=== PATIENT | female | born 1985 | race Caucasian/White ===

== ENCOUNTER 2017-02-28 03:00 | Emergency (ER) | payer MEDICAID ==
[2017-02-28] MEDS ORDERED: NS 0.9% 1000 ML* 1,000 ML IV ONE ×2 (03:23→05:01)
[2017-02-28] MEDS ORDERED: Ketorolac INJ* 30 MG/ML 1 ML VIAL IV ONE (03:23)
[2017-02-28] MEDS ORDERED: Morphine INJ* 4 MG/ML 1 ML SYRINGE IV ONE (03:23)
[2017-02-28] MEDS ORDERED: Ondansetron INJ* 2 MG/ML VIAL IV ONE (03:23)
[2017-02-28 04:07] LABS: Hematocrit 39 % (35-47); Mean Corpuscular HGB Conc 33 g/dl (31-36); Mean Corpuscular Hemoglobin 28 pg (27-31); Mean Corpuscular Volume 85 fL (80-97); Mean Platelet Volume 8 um3 (7.4-10.4); Red Blood Count 4.65 10^6/ul (4.0-5.4); Red Cell Distribution Width 15 % (10.5-15); White Blood Count 6.9 10^3/ul (3.5-10.8)
[2017-02-28 04:11] LABS: ALT 13 U/L (7-52); AST 15 U/L (13-39); Albumin 4.1 g/dL (3.2-5.2); Alkaline Phosphatase 44 U/L (34-104); Anion Gap 6 mmol/L (2-11); BUN/Creatinine Ratio 18.8 (8-20); Blood Urea Nitrogen 16 mg/dL (6-24); C Reactive Protein 4.43 mg/L (< 5.00); CO2 Carbon Dioxide 24 mmol/L (22-32); Calcium 8.8 mg/dL (8.6-10.3); Chloride 106 mmol/L (101-111); EGFR Non-African American 78.5 (>60); Globulin 2.7 g/dL (2-4); Glucose 119 mg/dL (70-100); Lipase 18 U/L (11.0-82.0); Potassium 3.4 mmol/L (3.5-5.0); Sodium 136 mmol/L (133-145); Total Protein 6.8 g/dL (6.4-8.9)
[2017-02-28 06:43] VITALS: BP 113/71
[2017-02-28] MEDS ORDERED: HYDROcodone/ACETAMIN 5-325 MG* 1 TAB PO ONE (06:53)
[2017-02-28 06:56] LABS: Urine Bacteria Absent (Absent); Urine Bilirubin Negative (Negative); Urine Glucose Negative (Negative); Urine Nitrite Negative (Negative)
--- NOTE | 2017-02-28 06:58 | ED ---
Kevin Kerr Alok, scribed for Kindra Roy MD on 02/28/17 at 0323 . Abdominal Pain/Female - HPI Summary HPI Summary: 31F presents to the ED with flank pain bilaterally on and off for the past few weeks. Pt states that her flank pain worsened this evening at 1800 and has been relatively constant since as well as slightly worse on the left side. The last thing the pt ate before her abd pain this evening was ice cream. Pt was seen at [facility] and had US done 5 days ago. Pt states her flank pain worsens with bending. 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 Pt also notes nausea. Pt denies dysuria or fever. Pt denies h/o pregnancies. PMHx includes thyroid disease for which she takes levothyroxine. Pt is currently on her menstrual period. - History of Current Complaint Chief Complaint: EDAbdPain Stated Complaint: ABD/SIDE PAIN Time Seen by Provider: 02/28/17 03:09 Hx Obtained From: Patient Onset/Duration: Lasting Weeks, Still Present Timing: Constant - Since 1800 this evening Severity Initially: Moderate Severity Currently: Moderate Location: Flank Aggravating Factor(s): Other: - bending Alleviating Factor(s): Nothing Associated Signs and Symptoms: Positive: Nausea. Negative: Fever, Urinary Symptoms Allergies/Adverse Reactions: Allergies Allergy/AdvReac Type Severity Reaction Status Date / Time No Known Allergies Allergy Verified 11/04/15 07:26 PMH/Surg Hx/FS Hx/Imm Hx Endocrine/Hematology History: Reports: Hx Thyroid Disease - hypothyroidism Denies: Hx Diabetes Cardiovascular History: Denies: Hx Aneurysm, Hx Angina, Hx Angioplasty, Hx Atrial Fibrillation, Hx Auto Implanted Cardiovert Defib, Hx Cardiac Arrest, Hx Cardiomegaly, Hx Congenital Heart Disease, Hx Congestive Heart Failure, Hx Coronary Artery Disease, Hx Deep Vein Thrombosis, Hx Embolism, Hx Hypercholesterolemia, Hx Hypotension, Hx Hypertension, Hx Myocardial Infarction, Hx Pacemaker/ICD, Hx Peripheral Vascular Disease, Hx Rheumatic Fever, Hx Syncope, Hx Valvular Heart Disease, Other Cardiovascular Problems/Disorders Respiratory History: Denies: Hx Asthma, Hx Bronchopulmonary Dysplasia, Hx Chronic Bronchitis, Hx Chronic Obstructive Pulmonary Disease (COPD), Hx Cystic Fibrosis, Hx Lung Cancer , Hx Pleural Effusion, Hx Pneumonia, Hx Pulmonary Edema, Hx Pulmonary Embolism, Hx Seasonal Allergies, Hx Sleep Apnea, Other Respiratory Problems/Disorders GI History: Denies: Hx Cirrhosis, Hx Crohn's Disease, Hx Diverticulosis, Hx Gall Bladder Disease, Hx Gastroesophageal Reflux Disease, Hx Gastrointestinal Bleed, Hx Hiatal Hernia, Hx Irritable Bowel, Hx Jaundice, Hx Obstructive Bowel, Hx Ileostomy, Hx Pyloric Stenosis, Hx Ulcer, Hx Urosepsis, Other GI Disorders History: Denies: Hx Acute Renal Failure, Hx Benign Prostatic Hyperplasia, Hx Chronic Renal Failure, Hx Dialysis, Hx Kidney Infection, Hx Kidney Stones, Hx Renal Disease, Other Problems/Disorders Musculoskeletal History: Denies: Hx Arthritis, Hx Rheumatoid Arthritis, Hx Back Problems, Hx Bursitis , Hx Congenital Bone Abnormalities, Hx Fibromyalgia, Hx Gout, Hx Orthopedic Injury, Hx Osteoporosis, Hx Scoliosis, Hx Tendonitis, Other Musculoskeletal History Sensory History: Reports: Hx Contacts or Glasses - GLASSES Denies: Hx Cataracts, Hx Eye Injury, Hx Eye Prosthesis, Hx Glaucoma, Hx Legally Blind, Hx Macular Degeneration, Hx Vision Problem, Hx Deafness, Hx Hearing Aid, Hx Hearing Problem, Other Sensory Impairments Opthamlomology History: Reports: Hx Contacts or Glasses - GLASSES Denies: Hx Cataracts, Hx Eye Injury, Hx Eye Prosthesis, Hx Glaucoma, Hx Legally Blind, Hx Macular Degeneration, Hx Vision Problem, Other Sensory Impairments Neurological History: Denies: Hx CVA, Hx Dementia, Hx Developmental Delay, Hx Headaches, Hx Migraine, Hx Nerve Disease, Hx Peripheral Neuropathy, Hx Seizures, Hx Spinal Cord Injury, Hx Transient Ischemic Attacks (TIA), Other Neuro Impairments/ Disorders Psychiatric History: Reports: Hx Anxiety - MINOR, Hx Attention Deficit Hyperactivity Disorder Denies: Hx Depression - Surgical History Surgery Procedure, Year, and Place: 2006 WISDOM TEETH EXTRACTION, TYE. BILATERAL SURGERY FOR INGROWN TOENAILS, TYE Hx Anesthesia Reactions: No Infectious Disease History: Denies: Traveled Outside the [place] in Last 30 Days - Family History Known Family History: Positive: Other - Yes - cholecystectomy (dad) Negative: Diabetes - Social History Occupation: Employed Full-time Lives: With Family Alcohol Use: None Hx Substance Use: No Substance Use Type: Reports: None Hx Tobacco Use: No Smoking Status (MU): Never Smoked Tobacco Review of Systems Negative: Fever Positive: Abdominal Pain, Nausea Negative: dysuria All Other Systems Reviewed And Are Negative: Yes Physical Exam Triage Information Reviewed: Yes Vital Signs On Initial Exam: Initial Vital Signs Temp 98 F 02/28/17 03:19 Pulse 78 02/28/17 03:19 Resp 22 02/28/17 03:19 BP 111/67 02/28/17 03:19 Pulse Ox 95 02/28/17 03:19 Vital Signs Reviewed: Yes Appearance: Positive: Well-Appearing, No Pain Distress Skin: Positive: Warm, Skin Color Reflects Adequate Perfusion, Dry Eyes: Positive: EOMI, NEAL ENT: Positive: Pharynx normal, TMs normal Neck: Positive: Supple, Nontender Respiratory/Lung Sounds: Positive: Clear to Auscultation, Breath Sounds Present. Negative: Rales, Rhonchi, Wheezes Cardiovascular: Positive: RRR, Other - no gallop. Negative: Murmur, Rub Abdomen Description: Positive: Soft, Other: - no rebound. Bilateral side muscular pain.. Negative: Distended, Guarding Bowel Sounds: Positive: Present Musculoskeletal: Positive: Other - Bilateral side muscular pain.. Negative: Edema Left, Edema Right Neurological: Positive: Sensory/Motor Intact, Alert, Oriented to Person Place, Time, CN Intact II-III Psychiatric: Positive: Affect/Mood Appropriate Diagnostics - Vital Signs Vital Signs Temp Pulse Resp BP Pulse Ox 02/28/17 06:00 77 113/71 97 02/28/17 05:08 70 97 02/28/17 04:30 120/87 02/28/17 04:03 71 99 02/28/17 04:02 113/78 02/28/17 03:39 16 02/28/17 03:19 98 F 78 22 111/67 95 - Laboratory Lab Results: Lab Results 02/28/17 02/28/17 Range/Units 03:44 03:44 WBC 6.9 (3.5-10.8) 10^3/ul RBC 4.65 (4.0-5.4) 10^6/ul Hgb 13.0 (12.0-16.0) g/dl Hct 39 (35-47) % MCV 85 (80-97) fL MCH 28 (27-31) pg MCHC 33 (31-36) g/dl RDW 15 (10.5-15) % Plt Count 207 (150-450) 10^3/ul MPV 8 (7.4-10.4) um3 Neut % (Auto) 62.8 (38-83) % Lymph % (Auto) 29.1 (25-47) % [place] % (Auto) 6.0 (1-9) % Eos % (Auto) 1.4 (0-6) % Baso % (Auto) 0.7 (0-2) % Absolute Neuts (auto) 4.3 (1.5-7.7) 10^3/ul Absolute Lymphs (auto) 2.0 (1.0-4.8) 10^3/ul Absolute Monos (auto) 0.4 (0-0.8) 10^3/ul Absolute Eos (auto) 0.1 (0-0.6) 10^3/ul Absolute Basos (auto) 0 (0-0.2) 10^3/ul Absolute Nucleated RBC 0 10^3/ul Nucleated RBC % 0.1 Sodium 136 (133-145) mmol/L Potassium 3.4 L (3.5-5.0) mmol/L Chloride 106 (101-111) mmol/L Carbon Dioxide 24 (22-32) mmol/L Anion Gap 6 (2-11) mmol/L BUN 16 (6-24) mg/dL Creatinine 0.85 (0.51-0.95) mg/dL Est GFR ( Amer) 101.0 (>60) Est GFR (Non-Af Amer) 78.5 (>60) BUN/Creatinine Ratio 18.8 (8-20) Glucose 119 H (70-100) mg/dL Calcium 8.8 (8.6-10.3) mg/dL Total Bilirubin 0.40 (0.2-1.0) mg/dL AST 15 (13-39) U/L ALT 13 (7-52) U/L Alkaline Phosphatase 44 (34-104) U/L C-Reactive Protein 4.43 (< 5.00) mg/L Total Protein 6.8 (6.4-8.9) g/dL Albumin 4.1 (3.2-5.2) g/dL Globulin 2.7 (2-4) g/dL Albumin/Globulin Ratio 1.5 (1-3) Lipase 18 (11.0-82.0) U/L Beta HCG, Quant < 0.60 mIU/mL Result Diagrams: 02/28/17 03:44 02/28/17 03:44 Lab Statement: Any lab studies that have been ordered have been reviewed, and results considered in the medical decision making process. Abdominal Pain Fem Course/Dx - Course Course Of Treatment: 31 yo female with b/l flank pain she is actually tender to palpation over her abdominal muscles laterally when she moves only. Her exam is otherwise normal, once her urine is back and is negative she will be discharged home - Diagnoses Provider Diagnoses: Flank pain Discharge - Discharge Plan Condition: Stable Disposition: HOME The documentation as recorded by the Kevin motley Alok accurately reflects the service I personally performed and the decisions made by me, Kindra Roy MD.
--- NOTE | 2017-02-28 08:24 | RAD ---
CLINICAL HISTORY: Bilateral flank pain and hematuria COMPARISON: None TECHNIQUE: Noncontrast CT examination of the abdomen and pelvis from the lung bases through the initial tuberosities. FINDINGS: VISUALIZED LUNG BASES: The visualized lung bases are grossly clear. There is no pleural effusion. ABDOMEN AND PELVIS: Evaluation of the solid organs and vasculature is limited without intravenous contrast. The liver, spleen, pancreas and adrenal glands are grossly normal in appearance. The gallbladder is normal. There are no renal calculi in either kidney and no signs of hydroureteronephrosis bilaterally. It becomes very difficult to track the distal ureter due to proximity to other soft tissues. In the left hemipelvis (image 134) there is a round 3 mm density that has a morphologic appearance more consistent with a phlebolith. Similarly, there is a smaller and similar shaped structure in the right hemipelvis (image 135). Urinary bladder measures 10.6 x 9.6 x 8.7 cm yielding an approximate volume of 717 mL. The small and large bowel are not distended. The partially gas-filled appendix is identified in the right lower quadrant (axial image 111 and coronal image 40). The gas and stool-filled colon does not exhibit any acute abnormalities. There is no gross retroperitoneal or mesenteric lymphadenopathy. The pelvic viscera is normal in appearance. The abdominal aorta and iliac arteries are normal in course and diameter. There are no sinister bone lesions. IMPRESSION: There are no renal calculi or definite signs of hydroureter nephrosis bilaterally. In the bilateral pelvis there are round hyperattenuating foci measuring 2 and 3 mm in diameter that have a morphologic appearance more consistent with a phleboliths than urinary calculi.
[2017-02-28] MEDS ORDERED: Potassium Chlor TAB* 20 MEQ TAB.ER PO ONE (08:29)
--- NOTE | 2017-02-28 11:58 | ED ---
Fermín Kerr Thomas, scribed for Mike Cheng MD on 02/28/17 at 0826 . Progress - Progress Note Progress Note: Sign out from Dr. Roy to Dr. Cheng 08:00 02/28 pending labs/UA. Pt is a 31 y/o female presenting to the ED c/o abd pain. Yesterday evening the pt angel from bed to urinate and experienced nausea and worsening of abd pain, prompting an ED visit. Sx are relieived when the pt lies supine on the bed, but the pt notes "maybe the morphine is working". Prior to her worsening of Sx last night, the Sx were alleviated with advil. Sx are aggravated when the pt moves. Three days ago the pt had an abd US that found renal calculi on the left side. VITAL SIGNS: Reviewed. GENERAL: Patient is a well-developed and nourished female who is lying comfortable in the stretcher. Patient is not in any acute respiratory distress. HEAD AND FACE: Normocephalic and atraumatic. EYES: PERRLA, EOMI x 2, No injected conjunctiva. EARS: Hearing grossly intact. Ear canals and tympanic membranes are WNL. MOUTH: Oropharynx within normal limits. NECK: Supple, trachea is midline, no adenopathy, no JVD. CHEST: Symmetric, no tenderness at palpation LUNGS: Clear to auscultation bilaterally. No wheezing or crackles. CVS: RRR, S1 and S2 present, no murmurs or gallops appreciated. ABDOMEN: Soft, non-tender. No signs of distention. Positive bowel sounds. No rebound no guarding, and no masses palpated. No abdominal bruit or pulsations. EXTREMITIES: FROM in all major joints, no edema, no cyanosis or clubbing. NEURO: Alert and oriented x 3. No acute neurological deficits. Speech is normal. SKIN: Dry and warm Course/Dx - Course Course Of Treatment: Patient was signed out by Dr. Roy to awaiting results of CT Abd/Pel. The patient came in with bilateral flank pain. UA showed 3+ blood , therefore Dr. Roy ordered a CT Abd/Pel to rule out kidney stones. The CT found there are no renal calculi or definite signs of hydroureter nephrosis bilaterally. In the bilateral pelvis there are round hyperattenuating foci measuring 2 and 3 mm in diameter that have a morphologic appearance more consistent with a phleboliths than urinary calculi. Because there were no kidney stones and the patient is feeling better, the patient was discharged to follow up with PCP. The patient was instructed if there is any fever, chills, nausea, vomiting, or any other pain, she should return to the ED for further workup. The patient was hemodynamically stable and alert and oriented x3. I discussed all the findings and test results with the patient. Patient was instructed to return to the emergency room immediately if any of the symptoms return or worsens. They were explained the possibility of an early abdominal pathology which was not detected at this time despite the physical exam and testing. They understand and agree. Abdominal exam before discharge: Soft, NT. No signs of distention. BS present. No rebound no guarding, and no masses palpated. Patient is alert and oriented and hemodynamically stable. Patient is to follow up with primary care physician in the next 2 to 3 days. Patient agree and understands. - Diagnoses Provider Diagnoses: Flank pain, Back pain The documentation as recorded by the Fermín motley Thomas accurately reflects the service I personally performed and the decisions made by me, Mike Cheng MD.
== END 2017-02-28 08:40 | disposition home or self-care (01) ==
LOC: ED 03:00
DX: R10.84 Generalized abdominal pain (principal); M54.9 Dorsalgia, unspecified; R11.0 Nausea
CPT/HCPCS: 36415; 74176; 80053; 81003; 81015; 83690; 84702; 85025; 86140; 87086; 99282; A9270-GY; J1885; J2270; J2405

== ENCOUNTER 2023-09-23 19:11 | Inpatient (IN) ==
[2023-09-23 21:07] LABS: Hematocrit 36.3 % (35-45); Hemoglobin 12.7 g/dL (11.5-14.3); Mean Corpuscular Hemoglobin 32.4 pg (27-33); Mean Corpuscular Hgb Conc 34.9 g/dL (31-36); Mean Platelet Volume 8.9 fL (7.5-11.2); Platelet Count 148 10^3/uL (150-450); Red Cell Distribution Width 13.6 % (12-17); White Blood Count 6.9 10^3/uL (3.8-11.8)
[2023-09-23] MEDS ORDERED: Buffered Lidocaine 1% SYRIN 1 ml INTRADERM ONE (21:11)
[2023-09-23] MEDS ORDERED: Lidocaine 1% VIAL 10 MG/ML 30 ML VIAL INJ PRN (21:11)
[2023-09-23] MEDS ORDERED: Penicillin G Potassium IV 5,000,000 UNITS in NS 0.9% 100 ml BAG 100 ML IVPB ONE (21:11)
[2023-09-23 21:13] LABS: Urine Appearance Cloudy; Urine Bilirubin Negative (Negative); Urine Blood Negative (Negative); Urine Color Yellow; Urine Glucose Negative (Negative); Urine Ketones Negative (Negative); Urine Nitrite Negative (Negative); Urine Protein 2+(100 mg/dL) (Negative); Urine Specific Gravity 1.013 (1.002-1.030); Urine Urobilinogen Negative (Negative)
[2023-09-23 21:27] LABS: Albumin 3.5 g/dL (3.2-5.2); Albumin/Globulin Ratio 1.2 (1-3); Calcium 9.6 mg/dL (8.6-10.3); Creatinine, Serum 0.88 mg/dL (0.51-0.95); Globulin 2.9 g/dL (2-4); Potassium 3.9 mmol/L (3.5-5.0); Total Bilirubin 0.2 mg/dL (0.2-1.0); Total Protein 6.4 g/dL (6.4-8.9); Uric Acid 6.7 mg/dL (2.3-6.6); eGFR CKD-EPI 86.7 (>60)
[2023-09-23 21:36] LABS: Urine Bacteria Absent (Absent); Urine Red Blood Cell Trace(0-2/hpf) (Absent); Urine Squamous Epithelial Cell Present (Absent); Urine White Blood Cell 1+(6-10/hpf) (Absent)
[2023-09-23 21:39] LABS: Urine Benzodiazepine Screen None Detected (None Detect); Urine Cannabinoids Screen None Detected (None Detect); Urine Opiates Screen None Detected (None Detect)
[2023-09-23] MEDS ORDERED: Dinoprostone 10 MG VAG.SUPP VAGINAL ONE (21:52)
[2023-09-23] MEDS ORDERED: Lidocaine 2% JELLY 6 ML Topical TOPICAL ONE (21:52)
[2023-09-24 08:57] LABS: ABS Basophils 0.1 10^3/uL (0.0-0.1); ABS Lymphocytes 1.2 10^3/uL (1.0-4.8); ABS Monocytes 0.5 10^3/uL (0.0-0.9); ABS Neutrophils 3.8 10^3/uL (1.5-7.6); ABS Nucleated RBC 0.03 10^3/ul; Eosinophil % 0.5 %; Hematocrit 37.6 % (35-45); Hemoglobin 13.3 g/dL (11.5-14.3); Lymphocyte % 21.3 %; Mean Corpuscular Hemoglobin 32.7 pg (27-33); Mean Corpuscular Hgb Conc 35.4 g/dL (31-36); Mean Corpuscular Volume 92.5 fL (80-97); Mean Platelet Volume 9.1 fL (7.5-11.2); Nucleated Red Blood Cells % 0.5 %/100WBC (0.0-0.8); Platelet Count 126 10^3/uL (150-450); Red Blood Count 4.07 10^6/uL (3.63-4.92); Red Cell Distribution Width 13.6 % (12-17); White Blood Count 5.5 10^3/uL (3.8-11.8)
[2023-09-24 09:15] LABS: Albumin 3.3 g/dL (3.2-5.2); Albumin/Globulin Ratio 1.2 (1-3); Calcium 8.8 mg/dL (8.6-10.3); Creatinine, Serum 0.84 mg/dL (0.51-0.95); Globulin 2.7 g/dL (2-4); Potassium 3.9 mmol/L (3.5-5.0); Total Bilirubin 0.3 mg/dL (0.2-1.0); eGFR CKD-EPI 91.7 (>60)
[2023-09-24] MEDS ORDERED: miSOPROStol 100 mcg TAB PO ONE ×2 (10:56→15:12)
[2023-09-24] MEDS ORDERED: Lidocaine 2% JELLY 6 ML Topical TOPICAL ONE (10:56)
[2023-09-24 14:23] LABS: ABS Basophils 0.1 10^3/uL (0.0-0.1); ABS Lymphocytes 1.3 10^3/uL (1.0-4.8); ABS Monocytes 0.4 10^3/uL (0.0-0.9); ABS Neutrophils 3.6 10^3/uL (1.5-7.6); ABS Nucleated RBC 0.01 10^3/ul; Eosinophil % 0.6 %; Hematocrit 38.2 % (35-45); Hemoglobin 13.1 g/dL (11.5-14.3); Mean Corpuscular Hgb Conc 34.4 g/dL (31-36); Mean Platelet Volume 8.9 fL (7.5-11.2); Nucleated Red Blood Cells % 0.1 %/100WBC (0.0-0.8); Platelet Count 123 10^3/uL (150-450); Red Cell Distribution Width 14.1 % (12-17); White Blood Count 5.4 10^3/uL (3.8-11.8)
[2023-09-24 14:40] LABS: Albumin 3.3 g/dL (3.2-5.2); Albumin/Globulin Ratio 1.1 (1-3); Calcium 9.1 mg/dL (8.6-10.3); Creatinine, Serum 0.83 mg/dL (0.51-0.95); Globulin 2.9 g/dL (2-4); Potassium 4.1 mmol/L (3.5-5.0); Total Bilirubin 0.2 mg/dL (0.2-1.0); Total Protein 6.2 g/dL (6.4-8.9); eGFR CKD-EPI 93.1 (>60)
[2023-09-24 20:07] LABS: Hematocrit 38.2 % (35-45); Hemoglobin 13.3 g/dL (11.5-14.3); Mean Corpuscular Hemoglobin 32.2 pg (27-33); Mean Corpuscular Hgb Conc 34.8 g/dL (31-36); Mean Corpuscular Volume 92.6 fL (80-97); Mean Platelet Volume 9.3 fL (7.5-11.2); Platelet Count 128 10^3/uL (150-450); Red Blood Count 4.12 10^6/uL (3.63-4.92); Red Cell Distribution Width 13.9 % (12-17)
[2023-09-24 20:29] LABS: Albumin 3.2 g/dL (3.2-5.2); Albumin/Globulin Ratio 1.3 (1-3); Calcium 9.1 mg/dL (8.6-10.3); Creatinine, Serum 0.86 mg/dL (0.51-0.95); Globulin 2.5 g/dL (2-4); Total Bilirubin 0.3 mg/dL (0.2-1.0); Total Protein 5.7 g/dL (6.4-8.9); eGFR CKD-EPI 89.2 (>60)
[2023-09-24] MEDS: miSOPROStol 100 mcg TAB PO ONE (23:34)
[2023-09-25 06:23] LABS: Hematocrit 37.8 % (35-45); Hemoglobin 13.3 g/dL (11.5-14.3); Mean Corpuscular Hemoglobin 32.6 pg (27-33); Mean Corpuscular Hgb Conc 35.2 g/dL (31-36); Mean Corpuscular Volume 92.8 fL (80-97); Mean Platelet Volume 8.7 fL (7.5-11.2); Platelet Count 120 10^3/uL (150-450); Red Blood Count 4.08 10^6/uL (3.63-4.92); Red Cell Distribution Width 13.6 % (12-17); White Blood Count 6.3 10^3/uL (3.8-11.8)
[2023-09-25 06:49] LABS: Albumin 3.2 g/dL (3.2-5.2); Albumin/Globulin Ratio 1.4 (1-3); Calcium 8.9 mg/dL (8.6-10.3); Creatinine, Serum 0.85 mg/dL (0.51-0.95); Globulin 2.3 g/dL (2-4); Potassium 4.1 mmol/L (3.5-5.0); Total Bilirubin 0.3 mg/dL (0.2-1.0); Total Protein 5.5 g/dL (6.4-8.9); eGFR CKD-EPI 90.4 (>60)
[2023-09-25] MEDS ORDERED: Oxytocin in LR 20,000 MILLI.UNIT/1,000 ML BAG IV SCH (08:05)
[2023-09-25] MEDS ORDERED: OBEPIDURAL (200 ML) 200 ML EPIDURAL ONE (10:15)
[2023-09-25] MEDS ORDERED: Lidocaine 1.5% EPI 1:200,000 30 ML SDV ONE (10:15)
[2023-09-25] MEDS: Lactated Ringers 1000 ml BAG 1,000 ML IV ONE ×2 (10:45→11:48)
[2023-09-25] MEDS: OBEPIDURAL (200 ML) 200 ML EPIDURAL SCH ×2 (11:30→23:26)
[2023-09-25] MEDS: miSOPROStol 100 mcg TAB PO ONE (11:49)
[2023-09-25] MEDS ORDERED: Sodium Citrate/Citric Acid LIQ 15 ML UDC PO PRN (12:20)
[2023-09-25] MEDS ORDERED: Phenylephrine 40 mcg/mL 10mL (400mcg) SYRINGE IV PUSH PRN ×2 (12:20)
[2023-09-25] MEDS ORDERED: Lactated Ringers 1000 ml BAG 1,000 ML IV ONE (12:20)
[2023-09-25] MEDS ORDERED: Lactated Ringers 1000 ml BAG 1,000 ML IV SCH (13:00)
[2023-09-25 13:07] LABS: ALT 17 U/L (7-52); Albumin 3.4 g/dL (3.2-5.2); Albumin/Globulin Ratio 1.3 (1-3); Alkaline Phosphatase 129 U/L (35-149); Anion Gap 11 mmol/L (2-16); Blood Urea Nitrogen 18 mg/dL (6-24); CO2 Carbon Dioxide 21 mmol/L (22-32); Calcium 9.5 mg/dL (8.6-10.3); Chloride 102 mmol/L (101-111); Creatinine, Serum 0.92 mg/dL (0.51-0.95); Globulin 2.7 g/dL (2-4); Glucose 91 mg/dL (70-100); Sodium 134 mmol/L (135-145); Total Bilirubin 0.2 mg/dL (0.2-1.0); Total Protein 6.1 g/dL (6.4-8.9); eGFR CKD-EPI 82.2 (>60)
[2023-09-25 13:24] LABS: Hematocrit 34.6 % (35-45); Hemoglobin 12.3 g/dL (11.5-14.3); Mean Corpuscular Hgb Conc 35.6 g/dL (31-36); Mean Corpuscular Volume 92.7 fL (80-97); Mean Platelet Volume 9.1 fL (7.5-11.2); Platelet Count 125 10^3/uL (150-450); Red Blood Count 3.73 10^6/uL (3.63-4.92); Red Cell Distribution Width 13.8 % (12-17); White Blood Count 5.9 10^3/uL (3.8-11.8)
[2023-09-25 13:42] LABS: Potassium Redraw 4.1 mmol/L (3.5-5.0)
[2023-09-25 14:09] LABS: Urine Appearance Clear; Urine Bilirubin Negative (Negative); Urine Blood Negative (Negative); Urine Color Yellow; Urine Glucose Negative (Negative); Urine Ketones Trace (Negative); Urine Nitrite Negative (Negative); Urine Protein 2+(100 mg/dL) (Negative); Urine Specific Gravity 1.017 (1.002-1.030); Urine Urobilinogen Negative (Negative)
[2023-09-25 14:23] LABS: Urine Bacteria Absent (Absent); Urine Red Blood Cell 1+(3-5/hpf) (Absent); Urine Squamous Epithelial Cell Present (Absent); Urine White Blood Cell Trace(0-5/hpf) (Absent)
[2023-09-25] MEDS ORDERED: Lidocaine 2% JELLY 6 ML Topical TOPICAL ONE (20:46)
[2023-09-25] MEDS ORDERED: Ondansetron 4 mg VIAL 2 MG/ML 2 ml VIAL ONE (20:54)
[2023-09-25] MEDS ORDERED: Ondansetron 4 mg VIAL 2 MG/ML 2 ml VIAL IV PRN (20:55)
[2023-09-25] MEDS: Penicillin G Potassium IV 3,000,000 UNITS in NS 0.9% 100 ml BAG 100 ML IVPB SCH (21:14)
[2023-09-26] MEDS: Penicillin G Potassium IV 3,000,000 UNITS in NS 0.9% 100 ml BAG 100 ML IVPB SCH (01:08)
[2023-09-26] MEDS ORDERED: fentaNYL 100 mcg/2 ml 50 MCG/ML VIAL ONE (02:34)
[2023-09-26] MEDS ORDERED: Witch Hazel PAD JAR TOPICAL PRN (03:31)
[2023-09-26] MEDS ORDERED: Dibucaine 1% OINT 28.35 GM TUBE PR PRN (03:31)
[2023-09-26] MEDS ORDERED: Glycerin ADULT 2.4 gm SUPP PR PRN (03:31)
[2023-09-26] MEDS ORDERED: Lactated Ringers 1000 ml BAG 1,000 ML IV SCH (04:00)
[2023-09-26 11:08] LABS: ABS Monocytes 0.8 10^3/uL (0.0-0.9); ABS Neutrophils 12.3 10^3/uL (1.5-7.6); ABS Nucleated RBC 0.01 10^3/ul; Hematocrit 29.6 % (35-45); Hemoglobin 10.5 g/dL (11.5-14.3); Lymphocyte % 7.1 %; Mean Corpuscular Hemoglobin 32.7 pg (27-33); Mean Corpuscular Hgb Conc 35.4 g/dL (31-36); Mean Corpuscular Volume 92.4 fL (80-97); Mean Platelet Volume 9.5 fL (7.5-11.2); Nucleated Red Blood Cells % 0.1 %/100WBC (0.0-0.8); Platelet Count 109 10^3/uL (150-450); Red Cell Distribution Width 13.8 % (12-17); White Blood Count 14.1 10^3/uL (3.8-11.8)
[2023-09-26 11:29] LABS: Albumin 2.6 g/dL (3.2-5.2); Albumin/Globulin Ratio 1.4 (1-3); Calcium 8.2 mg/dL (8.6-10.3); Creatinine, Serum 0.92 mg/dL (0.51-0.95); Globulin 1.8 g/dL (2-4); Total Bilirubin 0.3 mg/dL (0.2-1.0); Total Protein 4.4 g/dL (6.4-8.9); eGFR CKD-EPI 82.2 (>60)
[2023-09-26] MEDS ORDERED: Sodium Phosphate ADULT ENEMA 133 ML BTL PR ONE (13:43)
[2023-09-26 16:41] LABS: ABS Basophils 0.1 10^3/uL (0.0-0.1); ABS Lymphocytes 1.2 10^3/uL (1.0-4.8); ABS Nucleated RBC 0.01 10^3/ul; Eosinophil % 0.2 %; Hematocrit 30.5 % (35-45); Hemoglobin 10.6 g/dL (11.5-14.3); Lymphocyte % 8.4 %; Mean Corpuscular Hemoglobin 32.4 pg (27-33); Mean Corpuscular Hgb Conc 34.8 g/dL (31-36); Mean Corpuscular Volume 93.2 fL (80-97); Mean Platelet Volume 8.8 fL (7.5-11.2); Nucleated Red Blood Cells % 0.1 %/100WBC (0.0-0.8); Platelet Count 115 10^3/uL (150-450); Red Blood Count 3.27 10^6/uL (3.63-4.92); White Blood Count 14.3 10^3/uL (3.8-11.8)
[2023-09-26 17:19] LABS: Albumin/Globulin Ratio 1.4 (1-3); Calcium 9.3 mg/dL (8.6-10.3); Creatinine, Serum 0.97 mg/dL (0.51-0.95); Globulin 2.1 g/dL (2-4); Total Bilirubin 0.3 mg/dL (0.2-1.0); Total Protein 5.1 g/dL (6.4-8.9); eGFR CKD-EPI 77.2 (>60)
[2023-09-27 08:17] LABS: ABS Eosinophils 0.1 10^3/uL (0.0-0.5); ABS Lymphocytes 1.2 10^3/uL (1.0-4.8); ABS Monocytes 0.7 10^3/uL (0.0-0.9); Eosinophil % 0.5 %; Hematocrit 29.6 % (35-45); Hemoglobin 10.2 g/dL (11.5-14.3); Lymphocyte % 10.4 %; Mean Corpuscular Hemoglobin 32.4 pg (27-33); Mean Corpuscular Hgb Conc 34.5 g/dL (31-36); Mean Corpuscular Volume 93.8 fL (80-97); Mean Platelet Volume 8.5 fL (7.5-11.2); Platelet Count 100 10^3/uL (150-450); Red Blood Count 3.15 10^6/uL (3.63-4.92); Red Cell Distribution Width 13.9 % (12-17)
[2023-09-27 08:26] LABS: Albumin/Globulin Ratio 1.4 (1-3); Calcium 9.1 mg/dL (8.6-10.3); Creatinine, Serum 0.89 mg/dL (0.51-0.95); Globulin 2.2 g/dL (2-4); Potassium 3.8 mmol/L (3.5-5.0); Total Bilirubin 0.2 mg/dL (0.2-1.0); Total Protein 5.2 g/dL (6.4-8.9); eGFR CKD-EPI 85.6 (>60)
[2023-09-27] MEDS ORDERED: LEVOTHYROXINE 75 MCG PO SCH (09:00)
[2023-09-27] MEDS ORDERED: LEVOTHYROXINE 100 MCG PO SCH (09:00)
[2023-09-28 08:34] LABS: Hematocrit 29.7 % (35-45); Hemoglobin 10.4 g/dL (11.5-14.3); Mean Corpuscular Hemoglobin 32.3 pg (27-33); Mean Corpuscular Hgb Conc 34.9 g/dL (31-36); Mean Corpuscular Volume 92.6 fL (80-97); Platelet Count 124 10^3/uL (150-450); Red Blood Count 3.21 10^6/uL (3.63-4.92); White Blood Count 11.5 10^3/uL (3.8-11.8)
[2023-09-28 09:22] LABS: Albumin 3.2 g/dL (3.2-5.2); Albumin/Globulin Ratio 1.4 (1-3); Creatinine, Serum 0.66 mg/dL (0.51-0.95); Globulin 2.3 g/dL (2-4); Potassium 3.6 mmol/L (3.5-5.0); Total Bilirubin 0.2 mg/dL (0.2-1.0); Total Protein 5.5 g/dL (6.4-8.9); eGFR CKD-EPI 115.8 (>60)
[2023-09-28] MEDS ORDERED: Hemorrhoidal OINT 1 TUBE PR SCH (13:00)
[2023-09-28 16:13] VITALS: BP 128/96
== END 2023-09-28 18:05 | disposition home or self-care (01) | DRG 806 ==
LOC: MCHOB 19:42
PROVIDERS: ADMIT Midwife; ATTEND Midwife